=== PATIENT | male | born 1935 | race Caucasian/White ===

== ENCOUNTER 2018-07-28 05:44 | Outpatient (CLI) | payer MEDICARE, OTHER ==
[~2018-07-28] VITALS: Ht 162.6 cm; Wt 56.2 kg
[~2018-07-28 05:44] MED LIST: HYDR-3454 PO
== END 2018-07-28 13:23 | disposition home or self-care (01) ==
LOC: PREOP 05:44
PROVIDERS: ATTEND Otolaryngology Otolaryngology/Facial Plastic Surgery
DX: Z01.818 Encounter for other preprocedural examination (principal)

== ENCOUNTER 2018-07-31 10:11 | Day surgery (SDC) | payer MEDICARE, OTHER ==
[~2018-07-31] VITALS: Ht 162.6 cm; Wt 55.5 kg
--- OUTSIDE RECORDS SUMMARY | 2018-07-31 10:14 | XMS REPORT | Continuity of Care Document ---
Author Author [facility] Organization [facility] Address Unknown Phone Unavailable Allergies Active Description Code Type Severity Reaction Onset Reported/Identified Relationship to Patient Clinical Status Yes No Known Drug Allergies [id number] Drug Allergy Unknown N/A 10/17/2014 Medications There is no data. Problems Date Dx Coded Attending Type Code Diagnosis Diagnosed By 10/22/2014 Ot 709.9 10/22/2014 Ot V72.63 10/22/2014 Ot V72.83 10/22/2014 Ot V74.8 10/24/2014 STEFANY PATEL MD Ot 173.32 11/08/2014 Ot 709.9 11/08/2014 Ot V72.63 11/08/2014 Ot V72.83 11/08/2014 Ot V74.8 12/04/2014 Ot 709.9 12/04/2014 Ot V72.63 12/04/2014 Ot V72.83 12/04/2014 Ot V74.8 Procedures There is no data. Results Test Result Range Creatinine - 07/17/18 09:29 Creat 0.84 mg/dL 0.50-1.50 eGFR 88 mL/min/1.73m2 >59 Encounters ACCT No. Visit Date/Time Discharge Status Pt. Type Provider Facility Loc./Unit Complaint [id number] 10/24/2014 08:54:00 10/24/2014 14:15:00 DIS Outpatient STEFANY PATEL MD [facility] [id number] 07/31/2018 12:00:00 PEN Preadmit STEFANY PATEL MD [facility] RIGHT PAROTID CARCINOMA [id number] 10/17/2014 13:05:00 Document Registration [id number] 07/17/2018 09:09:00 07/17/2018 23:59:00 DIS Outpatient Stefany Patel
[2018-07-31 10:38] LABS: BASOPHILS % (AUTO) 1 % (0-10); EOSINOPHILS # (AUTO) 0.1 10^3/uL (0.0-0.3); EOSINOPHILS % (AUTO) 1 % (0-10); HEMATOCRIT 42 % (40-54); HEMOGLOBIN 14.2 G/DL (13.3-17.7); LYMPHOCYTES # (AUTO) 0.6 X 10^3 (1.0-4.0); LYMPHOCYTES % (AUTO) 10 % (12-44); MEAN CORPUSCULAR HEMOGLOBIN 31 PG (25-34); MEAN CORPUSCULAR HGB CONC 34 G/DL (32-36); MEAN CORPUSCULAR VOLUME 92 FL (80-99); MEAN PLATELET VOLUME 10.6 FL (7.4-10.4); MONOCYTES # (AUTO) 0.5 X 10^3 (0.0-1.0); MONOCYTES % (AUTO) 9 % (0-12); NEUTROPHILS # (AUTO) 4.9 X 10^3 (1.8-7.8); NEUTROPHILS % (AUTO) 81 % (42-75); PLATELET COUNT 159 10^3/uL (130-400); RED BLOOD COUNT 4.62 10^6/uL (4.35-5.85); RED CELL DISTRIBUTION WIDTH 13.6 % (10.0-14.5)
[2018-07-31] MEDS ORDERED: LIDOCAINE/EPI 1%-1:100,000 (XYLOCAINE) 20ML ONE (10:40)
[2018-07-31] MEDS ORDERED: SUCCINYLCHOLINE INJ 100 MG/5 ML SYR ONE (10:44)
[2018-07-31] MEDS ORDERED: proPOfol 200 MG/20 ML (DIPRIVAN) VIAL IV ONE (10:44)
[2018-07-31] MEDS ORDERED: LIDOCAINE PF 2% 5 ML (XYLOCAINE) VIAL ONE (10:44)
[2018-07-31] MEDS ORDERED: MIDAZOLAM 2 MG/2 ML (VERSED) VIAL ONE (10:44)
[2018-07-31] MEDS ORDERED: fentaNYL INJECTION 100 MCG/2 ML AMP ONE (10:45)
[2018-07-31] MEDS ORDERED: DEXAMETHASONE 10 MG/ML (DECADRON) 1 ML VIAL ONE (10:46)
[2018-07-31] MEDS ORDERED: ONDANSETRON 4 MG/2 ML (SDV) Z0FRAN ONE (10:46)
[2018-07-31 10:50] VITALS: BP 177/92
[2018-07-31] MEDS: LACTATED RINGERS 1,000 ML IV PRN ×2 (10:50→13:15)
[2018-07-31] MEDS ORDERED: SEVOFLURANE (ULTANE) 15 ML INHAL SOLN ONE ×9 (10:51→13:42)
[2018-07-31 10:55] LABS: BUN/CREATININE RATIO 19; CALCIUM 9.6 MG/DL (8.5-10.1); CARBON DIOXIDE 26 MMOL/L (21-32); CHLORIDE 102 MMOL/L (98-107); CREATININE SERUM 0.93 MG/DL (0.60-1.30); GFR ESTIMATED > 60; GLUCOSE 102 MG/DL (70-105); POTASSIUM 4.7 MMOL/L (3.6-5.0); SODIUM 139 MMOL/L (135-145)
[2018-07-31] MEDS ORDERED: MUPIROCIN 2% OINT 22 GM (BACTROBAN) TUBE ONE (11:44)
--- NOTE | 2018-07-31 13:40 | Progress Note-Pre Operative ---
Pre-Operative Progress Note H&P Reviewed The H&P was reviewed, patient examined and no changes noted. Date Seen by Provider: Jul 31, 2018 Time Seen by Provider: 11:00 Date H&P Reviewed: Jul 31, 2018 Time H&P Reviewed: 11:00 Pre-Operative Diagnosis: Scca of Right Parotid, Right Cheek Lesion-SCCa STEFANY ESPINOZA MD Jul 31, 2018 13:40
[2018-07-31] MEDS ORDERED: D5 1/2 NS W/KCL 20 MEQ/L 1,000 ML IV SCH (13:41)
--- NOTE | 2018-07-31 13:41 | Progress Note-Post Operative ---
Post-Operative Progess Note Surgeon (s)/Chief Medical Technologist (s) Surgeon STEFANY ESPINOZA MD Chief Medical Technologist n/a Pre-Operative Diagnosis Scca of Right Parotid, Right Cheek Lesion-SCCa Post-Operative Diagnosis same Post-Op Procedure Note Date of Procedure: Jul 31, 2018 Name of Procedure Performed: Right Parotidectomy with preservation of Facial Nerve, Excision of Right Cheek Lesion, REconstruction with Local ADvancement Flap Description & Findings Description and Findings: n/a Anesthesia Type get Estimated Blood Loss minimal Packing none. Specimen(s) collected/removed Right Parotid Right Cheek Lesion STEFANY ESPINOZA MD Jul 31, 2018 13:41
[2018-07-31] MEDS ORDERED: fentaNYL INJECTION 100 MCG/2 ML AMP IVP PRN (13:45)
[2018-07-31] MEDS ORDERED: ACETAMINOPHEN 325 MG TABLET PO PRN (13:45)
[2018-07-31] MEDS ORDERED: HYDROcodone/APAP 5 MG/325 MG (LORTAB) TAB PO PRN (13:45)
[2018-07-31] MEDS ORDERED: morphine INJ 10 MG/ML 1ML (SYR OR VIAL) ONE (14:04)
[2018-07-31] MEDS ORDERED: morphine INJ 10 MG/ML 1ML (SYR OR VIAL) IVP ONE (14:15)
[2018-07-31] MEDS ORDERED: MEPERIDINE (DEMEROL) INJ 50 MG/ML IVP ONE (14:15)
[2018-07-31] MEDS ORDERED: ONDANSETRON 4 MG/2 ML (SDV) Z0FRAN IVP PRN (14:15)
[2018-07-31 15:00] VITALS: BP 135/65
--- NOTE | 2018-07-31 15:00 | NUR ---
Patient to room via hospital bed accompanied by adult sister and staff. Pt. currently sleeping with no signs of pain or distress. Bed in low locked position with side rails x4.
--- NOTE | 2018-07-31 16:25 | Progress Note-Standard ---
Standard Progress Note Progress Notes/Assess & Plan Date Seen by a Provider: Jul 31, 2018 Time Seen by a Provider: 16:15 Progress/Assessment & Plan ENT-Amanda Patient seen post-op 20cc in [facility]- Incision intact with no swelling Face-right side weak but intact-able to close eye-lower lip weak hasnt eaten anything yet has no complaints of pain will clean incision with H2o2 and place bactroban ointment along it lul lsee how much drainage in am and then home if driange is minimal await final path report as well Final Diagnosis S/p Right parotid and cheek surgery STEFANY ESPINOZA MD Jul 31, 2018 16:25
[2018-07-31] MEDS ORDERED: HYDROGEN PEROXIDE 473 ML SOLUTION MC SCH (16:45)
[2018-07-31] MEDS ORDERED: FLU QUADRIvalent (5+ YOA) 2018-2019 (AFLURIA) 0.5 ML IM ONE (17:30)
[2018-07-31 20:20] VITALS: BP 142/74
[2018-08-01] VITALS: BP 142/75
[2018-08-01 04:00] VITALS: BP 170/81
--- NOTE | 2018-08-01 06:32 | Progress Note-Standard ---
Standard Progress Note Progress Notes/Assess & Plan Date Seen by a Provider: Aug 01, 2018 Time Seen by a Provider: 06:00 Progress/Assessment & Plan ENT-Amanda Patient seen post-op 20cc in [facility]- Incision intact with no swelling Face-right side weak but intact-able to close eye-lower lip weak hasnt eaten anything yet has no complaints of pain will clean incision with H2o2 and place bactroban ointment along it lul lsee how much drainage in am and then home if driange is minimal await final path report as well ENT-Amanda-08/01-6am doing well Face-weak on right side but can close eye Incision with crusting-crusting removed with [id number] intact Drain-10cc over last 12 hours-drain d/c'ed able to eat some jello last night-will discharge after breakfaast rtc-1 week will send home bactroban and [id number] given call if he becomes unable toclose right eye 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
[2018-08-01 08:00] VITALS: BP 158/71
[2018-08-01] MEDS ORDERED: MUPIROCIN 2% OINT 22 GM (BACTROBAN) TUBE TOP SCH ×2 (08:30→21:00)
[2018-08-01 09:35] VITALS: BP 158/71
--- NOTE | 2018-08-01 10:14 | Anesthesia-General Post-Op ---
General Patient Condition Mental Status/LOC: Same as Preop Cardiovascular: Satisfactory Nausea/Vomiting: Absent Respiratory: Satisfactory Pain: Controlled Complications: Absent Post Op Complications Complications None Follow Up Care/Instructions Patient Instructions None needed. Anesthesia/Patient Condition Patient Condition Patient is doing well, no complaints, stable vital signs, no apparent adverse anesthesia problems. No complications reported per nursing. YANICK RENDON CRNA Aug 01, 2018 10:14
== END 2018-08-01 09:35 | disposition home or self-care (01) ==
LOC: SDC 10:11 → 4TH 14:25 → SDC 08-01 09:35
PROVIDERS: ATTEND Otolaryngology Otolaryngology/Facial Plastic Surgery
DX: C07 Malignant neoplasm of parotid gland (principal); C44.320 Squamous cell carcinoma of skin of unspecified parts of face; F70 Mild intellectual disabilities
CPT/HCPCS: 36415; 80048; 85025; 87081; 93005

== ENCOUNTER 2018-11-06 13:16 | Outpatient (RCR) | payer MEDICARE, OTHER | END 2018-11-23 | disposition home or self-care (01) | LOC: ONC 13:16 | PROVIDERS: ATTEND Radiology Radiation Oncology | DX: Z51.0 Encounter for antineoplastic radiation therapy (principal); C44.320 Squamous cell carcinoma of skin of unspecified parts of face; C77.0 Secondary and unspecified malignant neoplasm of lymph nodes of head, face and neck; F70 Mild intellectual disabilities | CPT/HCPCS: 77290; 77300; 77332; 77334; 77336; 77470; 99204 ==

== ENCOUNTER 2022-03-22 05:31 | Outpatient (CLI) | payer MEDICARE, OTHER ==
[~2022-03-22] VITALS: Ht 152.5 cm; Wt 115.0 kg
== END 2022-03-23 09:17 | disposition home or self-care (01) ==
LOC: PREOP 05:31
PROVIDERS: ATTEND Otolaryngology Otolaryngology/Facial Plastic Surgery
DX: Z01.818 Encounter for other preprocedural examination (principal)

== ENCOUNTER 2022-03-26 05:48 | Day surgery (SDC) | payer MEDICARE, OTHER ==
[2022-03-26] VITALS (10 sets, daily range): BP systolic 117–173; BP diastolic 71–100
[~2022-03-26] VITALS: Ht 152 cm; Wt 58.6 kg
[2022-03-26] MEDS ORDERED: LACTATED RINGERS 1,000 ML IV PRN (06:15)
[2022-03-26 06:41] LABS: BASOPHILS % (AUTO) 0 % (0-10); EOSINOPHILS # (AUTO) 0.1 10^3/uL (0.0-0.3); EOSINOPHILS % (AUTO) 1 % (0-10); HEMATOCRIT 44 % (40-54); HEMOGLOBIN 14.4 g/dL (13.3-17.7); LYMPHOCYTES # (AUTO) 0.5 10^3/uL (1.0-4.0); LYMPHOCYTES % (AUTO) 7 % (12-44); MEAN CORPUSCULAR HEMOGLOBIN 30 pg (25-34); MEAN CORPUSCULAR HGB CONC 33 g/dL (32-36); MEAN CORPUSCULAR VOLUME 91 fL (80-99); MONOCYTES # (AUTO) 0.5 10^3/uL (0.0-1.0); MONOCYTES % (AUTO) 7 % (0-12); NEUTROPHILS # (AUTO) 6.3 10^3/uL (1.8-7.8); NEUTROPHILS % (AUTO) 84 % (42-75); PLATELET COUNT 162 10^3/uL (130-400); WHITE BLOOD COUNT 7.4 10^3/uL (4.3-11.0)
[2022-03-26 06:51] LABS: CALCIUM 9.2 MG/DL (8.5-10.1)
[2022-03-26 06:55] LABS: CREATININE SERUM 0.94 MG/DL (0.60-1.30)
[2022-03-26 07:01] LABS: LYMPHOCYTES % (MANUAL) 8 %; MONOCYTES % (MANUAL) 9 %; NEUTROPHILS % (MANUAL) 83 %; RBC MORPH NORMAL
[2022-03-26] MEDS ORDERED: LIDOCAINE/EPI 2% 1:200,00 (XYLOCAINE) 20 ML VIAL ONE (07:10)
[2022-03-26] MEDS ORDERED: MUPIROCIN 2% OINT 22 GM (BACTROBAN) TUBE ONE (07:10)
--- NOTE | 2022-03-26 07:12 | Progress Note-Pre Operative ---
Pre-Operative Progress Note Date of Available H&P: Mar 26, 2022 Date H&P Reviewed: Mar 26, 2022 Time H&P Reviewed: 06:45 History & Physical: H&P Reviewed, Patient Examed, No changes noted Changes from last HP none Pre-Operative Diagnosis: Left Cheek Lesion STEFANY ESPINOZA MD Mar 26, 2022 07:12
--- NOTE | 2022-03-26 07:13 | Progress Note-Post Operative ---
Post-Operative Progess Note Surgeon (s)/Third Cook (s) Surgeon STEFANY ESPINOZA MD Third Cook n/a Pre-Operative Diagnosis Left Cheek Lesion Post-Operative Diagnosis same Post-Op Procedure Note Date of Procedure: Mar 26, 2022 Name of Procedure Performed: Excision of Left Cheek Lesion, Reocnstruciton with Local Advancement Flap Description & Findings Description and Findings: n/a Anesthesia Type lma Estimated Blood Loss minimal Packing none. Specimen(s) collected/removed left cheek lesion to pathology for frozen section STEFANY ESPINOZA MD Mar 26, 2022 07:13
[2022-03-26] MEDS ORDERED: ACETAMINOPHEN 325 MG TABLET PO PRN (07:15)
[2022-03-26] MEDS ORDERED: HYDROcodone/APAP 5 MG/325 MG (LORTAB) TAB PO PRN (07:15)
[2022-03-26] MEDS ORDERED: fentaNYL INJ 100 MCG/2 ML AMP ONE (07:23)
[2022-03-26] MEDS ORDERED: LIDOCAINE PF 2% 5 ML (XYLOCAINE) VIAL ONE (07:23)
[2022-03-26] MEDS ORDERED: MIDAZOLAM 2 MG/2 ML (VERSED) VIAL ONE (07:23)
[2022-03-26] MEDS ORDERED: proPOfol 200 MG/20 ML (DIPRIVAN) VIAL IV ONE (07:23)
[2022-03-26] MEDS ORDERED: ONDANSETRON 4 MG/2 ML (SDV) Z0FRAN ONE (07:23)
[2022-03-26] MEDS ORDERED: GLYCOPYRROLATE 0.2 MG/ML (ROBINUL) 2 ML VIAL ONE (10:13)
[2022-03-26] MEDS ORDERED: PHENYLEPHRINE 100 MCG/ML 10 ML (ANESTHESIA) SYR ONE (10:13)
[2022-03-26] MEDS ORDERED: SEVOFLURANE (ULTANE) 15 ML INHAL SOLN ONE (10:29)
[2022-03-26] MEDS ORDERED: CEPH500T PO (10:53)
[2022-03-26] MEDS ORDERED: morphine INJ 10 MG/ML 1ML (SYR OR VIAL) IVP ONE (11:00)
[2022-03-26] MEDS ORDERED: ONDANSETRON 4 MG/2 ML (SDV) Z0FRAN IVP PRN (11:00)
--- NOTE | 2022-03-26 12:11 | Anesthesia-General Post-Op ---
General Patient Condition Mental Status/LOC: Same as Preop Cardiovascular: Satisfactory Nausea/Vomiting: Absent Respiratory: Satisfactory Pain: Controlled Complications: Absent Post Op Complications Complications None Follow Up Care/Instructions Patient Instructions None needed. Anesthesia/Patient Condition Patient Condition Patient is doing well, no complaints, stable vital signs, no apparent adverse anesthesia problems. No complications reported per nursing. ECTOR ALLISON DO Mar 26, 2022 12:11
== END 2022-03-26 12:32 | disposition home or self-care (01) ==
LOC: SDC 05:48
PROVIDERS: ATTEND Otolaryngology Otolaryngology/Facial Plastic Surgery
DX: C44.329 Squamous cell carcinoma of skin of other parts of face (principal)
CPT/HCPCS: 36415; 80048; 85007; 85027; 87081; 93005